=== PATIENT | female | born 2000 | race Native Hawaiian/Other Pacific Islander ===

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

== ENCOUNTER 2021-12-25 08:26 | Emergency (ER) | payer OTHER ==
[2021-12-25 08:51] VITALS: BP 125/75
--- NOTE | 2021-12-25 08:57 | Emergency Department Report ---
ED HPI - General Chief complaint: Abdominal Pain Stated complaint: 7WKS /LOWER ABD PAIN Time Seen by Provider: 12/25/21 08:46 Source: patient Mode of arrival: Ambulatory Limitations: No Limitations - History of Present Illness Initial comments: 21-year-old female presents to the ER today with complaints of low abdominal pain and . Patient states that she is about 6 weeks and some days . The first day of her last menstrual cycle was November 12, 2021. She states that she started with intermittent sharp low abdominal pain, mainly left lower quadrant, for the past 3 days. She states that she notices it more when she walks. She denies any abnormal vaginal bleeding or discharge. She denies UTI symptoms. She denies any associated lower back pain. She states that her first appointment is not until January. She is Ab0. Abdominal surgery significant for C-sections and appendectomy. Complaint: abdominal pain, other ( ) -: days(s) (3) - Related Data Home Medications Medication Instructions Recorded Confirmed Last Taken Multivitamin Tablet 1 tab PO DAILY 12/14/18 12/14/18 12/13/18 11:00 Previous Rx's Medication Instructions Recorded Last Taken Type Acetaminophen/Codeine [Tylenol 1 tab PO Q6H PRN #12 tab 07/17/18 12/07/18 16:00 Rx /Codeine # 3 tab] Ferrous Sulfate 325 mg PO BID #60 tablet. 12/15/18 Unknown Rx Ibuprofen [Motrin] 600 mg PO Q8H PRN #30 tablet 12/15/18 Unknown Rx oxyCODONE /ACETAMINOPHEN [Percocet 1 tab PO Q6HR PRN #30 tablet 12/15/18 Unknown Rx 5/325] Allergies Allergy/AdvReac Type Severity Reaction Status Date / Time No Known Allergies Allergy Verified 12/14/18 12:46 ED Review of Systems ROS: Stated complaint: 7WKS /LOWER ABD PAIN Other details as noted in HPI Comment: All other systems reviewed and negative Constitutional: denies: chills, diaphoresis, fever, malaise, weakness Eyes: denies: eye discharge, vision change ENT: denies: ear pain, throat pain, dental pain, hearing loss Respiratory: denies: cough, shortness of breath, wheezing Cardiovascular: denies: chest pain, palpitations Gastrointestinal: abdominal pain. denies: nausea, vomiting, diarrhea, constipation, hematemesis, melena, hematochezia Genitourinary: denies: urgency, dysuria, frequency, hematuria, discharge, abnormal menses, dyspareunia Musculoskeletal: denies: back pain, joint swelling, arthralgia, myalgia Skin: denies: rash, lesions, change in color, change in hair/nails Neurological: denies: headache, weakness, numbness, paresthesias, confusion, vertigo Psychiatric: denies: anxiety, depression, auditory hallucinations, visual hallu cinations, homicidal thoughts, suicidal thoughts Hematological/Lymphatic: denies: easy bleeding, easy bruising, swollen glands ED Past Medical Hx - Past Medical History Previous Medical History?: Yes Hx Hypertension: No Hx Congestive Heart Failure: No Hx Diabetes: No Hx Deep Vein Thrombosis: No Hx Renal Disease: No Hx Sickle Cell Disease: No Hx Seizures: No Hx Asthma: Yes (uses inhaler) Hx COPD: No - Surgical History Past Surgical History?: Yes Hx Appendectomy: Yes Additional Surgical History: - Social History Smoking Status: Former Smoker - Medications Home Medications: Home Medications Medication Instructions Recorded Confirmed Last Taken Type Acetaminophen/Codeine [Tylenol 1 tab PO Q6H PRN #12 tab 07/17/18 12/14/18 12/07/18 16:00 Rx /Codeine # 3 tab] Multivitamin Tablet 1 tab PO DAILY 12/14/18 12/14/18 12/13/18 11:00 History Ferrous Sulfate 325 mg PO BID #60 tablet. 12/15/18 Unknown Rx Ibuprofen [Motrin] 600 mg PO Q8H PRN #30 tablet 12/15/18 Unknown Rx oxyCODONE /ACETAMINOPHEN [Percocet 1 tab PO Q6HR PRN #30 tablet 12/15/18 Unknown Rx 5/325] ED Physical Exam - General Limitations: No Limitations General appearance: alert, in no apparent distress - Head Head exam: Present: atraumatic, normocephalic, normal inspection - Respiratory Respiratory exam: Present: normal lung sounds bilaterally. Absent: respiratory distress, wheezes, rales, rhonchi - Cardiovascular Cardiovascular Exam: Present: regular rate, normal rhythm, normal heart sounds - GI/Abdominal GI/Abdominal exam: Present: soft, tenderness (mild ttp llq). Absent: distended, guarding, rebound, rigid - Neurological Exam Neurological exam: Present: alert, oriented X3, CN II-XII intact, normal gait - Psychiatric Psychiatric exam: Present: normal affect, normal mood - Skin Skin exam: Present: intact ED Course Vital Signs 12/25/21 08:39 Temperature 98.5 F Pulse Rate 89 Respiratory 18 Rate Blood Pressure 125/75 O2 Sat by Pulse 100 Oximetry ED Medical Decision Making - Lab Data Result diagrams: 12/25/21 09:02 12/25/21 09:02 - Radiology Data Radiology results: report reviewed Patient: JANNETTE DOMINIQUE MR#: [id number] : 2000 Acct:[id number] Age/Sex: 21 / F ADM Date: 12/25/21 Loc: ED Attending Dr: Ordering Physician: TARA REILLY Date of Service: 12/25/21 Procedure(s): US OB transvaginal Accession Number(s): [id number] cc: TARA REILLY ULTRASOUND OBSTETRIC INDICATION / CLINICAL INFORMATION: about 6 weeks preg/low abd pain. Clinical Gestational Age (GA) in weeks, days: 6 weeks 2 days TECHNIQUE: Transvaginal. COMPARISON: None available. FINDINGS: GESTATIONAL SAC: Well-defined oval shape and intrauterine in location. YOLK SAC: No significant abnormality. EMBRYO/FETUS: No significant abnormality. - [place]-Rump Length = 0.36 cm = 6, 0 weeks, days - Heart Rate, beats per minute (if present) = 165 ADNEXA: No significant abnormality. FREE FLUID: Minimal free fluid in the pelvis. ADDITIONAL FINDINGS: Right ovary measures 1.9 x 2.6 x 2.1 cm. Left ovary measures 2.2 x 3.1 x 2.0 cm. IMPRESSION: 1. Single, living intrauterine with estimated sonographic age of 6 weeks 1 day. 2. Minimal free fluid is nonspecific. Signer Name: Chano Ludwig MD Signed: 12/25/2021 10:36 AM Workstation Name: [id number] Transcribed By: DB Dictated By: CHANO LUDWIG MD Electronically Authenticated By: CHANO LUDWIG MD Signed Date/Time: 12/25/21 1036 DD/ 1032 TD/TT: - Medical Decision Making 21-year-old female presents to the ER today with complaints of low abdominal pain and . Patient states that she is about 6 weeks and some days . The first day of her last menstrual cycle was November 12, 2021. She states that she started with intermittent sharp low abdominal pain, mainly left lower quadrant, for the past 3 days. She states that she notices it more when she walks. She denies any abnormal vaginal bleeding or discharge. She denies UTI symptoms. She denies any associated lower back pain. She states that her first appointment is not until January. She is Ab0. Abdominal pedersen rgery significant for C-sections and appendectomy. CBC and CMP unremarkable. Urinalysis negative [place] [id number]. OB ultrasound shows live IUP measuring at 6 weeks and 1 day. Patient seen in recliner comfortably. She denies any significant distress. Abdominal exam was soft and nontender. She has no vaginal bleeding or any other vaginal symptoms. She is not toxic or ill-appearing. She appears hydrated. She is neurologically intact and her gait is normal. Her vital signs are stable. Discussed all results with patient. Recommend Tylenol for pain and follow-up with her OB as scheduled but she understands to return if at any point her symptoms changes or worsens in any way. Critical care attestation.: If time is entered above; I have spent that time in minutes in the direct care of this critically ill patient, excluding procedure time. ED Disposition Clinical Impression: Abdominal pain during Disposition: 01 HOME / SELF CARE / HOMELESS Is pt being admited?: No Does the pt Need Aspirin: No Condition: Stable Instructions: Abdominal Pain During , [id number], Abdominal Pain (ED) Additional Instructions: Your OB ultrasound today shows a single live intrauterine about 6 weeks and 1 day. No evidence of ectopic . You can take Tylenol as needed to help with any pain or discomfort. Follow-up with your BUSINESS SYSTEMS CONSULTANT as scheduled. Return to the ER if your symptoms changes or worsens in any way. Referrals: PRIMARY CARE, [Primary Care Provider] - 3-5 Days Forms: Work/School Release Form(ED) Time of Disposition: 10:59
[2021-12-25 09:13] LABS: Bacteria,Urine 1+ /HPF (Negative); Bilirubin,Urine NEG (Negative); Blood,Urine NEG (Negative); Color,Urine Yellow (Yellow); Mucus,Urine 1+ /HPF; Protein,Urine <15 mg/dL mg/dL (Negative); Urobilinogen,Urine < 2.0 mg/dL (<2.0)
[2021-12-25 09:29] LABS: Basophils % (Auto) 0.6 % (0.0-1.8); Eosinophils # (Auto) 0.1 K/mm3 (0.0-0.4); Eosinophils % (Auto) 2.1 % (0.0-4.3); Hematocrit 36.7 % (30.3-42.9); Hemoglobin 11.7 gm/dl (10.1-14.3); Lymphocytes # (Auto) 1.7 K/mm3 (1.2-5.4); Lymphocytes % (Auto) 26.6 % (13.4-35.0); Mean Corpuscular HGB Conc 32 % (30-34); Mean Corpuscular Volume 79 fl (79-97); Monocytes # (Auto) 0.5 K/mm3 (0.0-0.8); Monocytes % (Auto) 7.1 % (0.0-7.3); Platelet Count 239 K/mm3 (140-440); Red Blood Count 4.63 M/mm3 (3.65-5.03)
[2021-12-25 09:52] LABS: Alanine Aminotransferase 10 units/L (7-56); Albumin 4.1 g/dL (3.9-5); Blood Urea Nitrogen 6 mg/dL (7-17); Calcium 8.8 mg/dL (8.4-10.2); Hemolysis Index 36
[2021-12-25 10:09] LABS: BUN/Creatinine Ratio 12
--- NOTE | 2021-12-25 10:41 | Ultrasound Report ---
ULTRASOUND OBSTETRIC INDICATION / CLINICAL INFORMATION: about 6 weeks preg/low abd pain. Clinical Gestational Age (GA) in weeks, days: 6 weeks 2 days TECHNIQUE: Transvaginal. COMPARISON: None available. FINDINGS: GESTATIONAL SAC: Well-defined oval shape and intrauterine in location. YOLK SAC: No significant abnormality. EMBRYO/FETUS: No significant abnormality. - [place]-Rump Length = 0.36 cm = 6, 0 weeks, days - Heart Rate, beats per minute (if present) = 165 ADNEXA: No significant abnormality. FREE FLUID: Minimal free fluid in the pelvis. ADDITIONAL FINDINGS: Right ovary measures 1.9 x 2.6 x 2.1 cm. Left ovary measures 2.2 x 3.1 x 2.0 cm. IMPRESSION: 1. Single, living intrauterine with estimated sonographic age of 6 weeks 1 day. 2. Minimal free fluid is nonspecific. Signer Name: Sarath Ludwig MD Signed: 12/25/2021 10:36 AM Workstation Name: [id number]
== END 2021-12-25 11:07 | disposition home or self-care (01) ==
LOC: ED 08:26
DX: O26.891 Other specified pregnancy related conditions, first trimester (principal); R10.32 Left lower quadrant pain; Z3A.08 8 weeks gestation of pregnancy; J45.909 Unspecified asthma, uncomplicated; Z98.890 Other specified postprocedural states
CPT/HCPCS: 36415; 76817; 80053; 81001; 84702; 85025; 87086; 99284

== ENCOUNTER 2022-06-27 12:30 | Outpatient (CLI) | payer OTHER ==
[2022-06-27 12:59] VITALS: BP 121/66
--- NOTE | 2022-06-27 13:51 | Ultrasound Report ---
. ULTRASOUND BIOPHYSICAL PROFILE INDICATION: BPP. Decreased movement COMPARISON: None available. FINDINGS: heart rate is 150 beats per minute. breathing movement = 2 Gross body movement = 2 tone = 2 Qualitative amniotic fluid volume = 2 IMPRESSION: biophysical profile = 06/20 Signer Name: Rolf Stovall Jr, MD Signed: 06/27/2022 1:47 PM Workstation Name: [id number]
== END 2022-06-27 13:58 | disposition home or self-care (01) ==
LOC: TRG 12:30 → APU 12:31 → TRG 13:58
PROVIDERS: ATTEND Obstetrics & Gynecology
DX: O36.8130 Decreased fetal movements, third trimester, not applicable or unspecified (principal); Z3A.32 32 weeks gestation of pregnancy
CPT/HCPCS: 76819

== ENCOUNTER 2022-07-11 10:40 | Outpatient (CLI) | payer OTHER ==
[2022-07-11] MEDS ORDERED: LACTATED RINGERS 500 ML IV ONE (11:18)
[2022-07-11 11:24] VITALS: BP 125/83
== END 2022-07-11 13:21 | disposition home or self-care (01) ==
LOC: TRG 10:40 → APU 10:42 → TRG 13:21
PROVIDERS: ATTEND Obstetrics & Gynecology
DX: O42.913 Preterm premature rupture of membranes, unspecified as to length of time between rupture and onset of labor, third trimester (principal); Z3A.34 34 weeks gestation of pregnancy
CPT/HCPCS: 36415; 59025; 84112

== ENCOUNTER 2022-08-07 08:14 | Inpatient (IN) | payer OTHER ==
[2022-08-07 11:28] LABS: Bilirubin,Urine NEG (Negative); Blood,Urine NEG (Negative); Color,Urine Yellow (Yellow); Protein,Urine <15 mg/dL mg/dL (Negative)
[2022-08-07 11:48] LABS: Bacteria,Urine 1+ /HPF (Negative); Mucus,Urine FEW /HPF; Sperm,Urine FEW /HPF (NP); Urobilinogen,Urine < 2 mg/dL (<2.0)
[2022-08-07] MEDS ORDERED: BICITRA ORAL LIQD 30ML PO ONE (11:49)
[2022-08-07] MEDS ORDERED: METOCLOPRAMIDE 10 MG/2 ML INJ IV ONE (11:49)
[2022-08-07] MEDS ORDERED: FAMOTIDINE 20 MG/2 ML INJ IV ONE (11:49)
--- NOTE | 2022-08-07 11:59 | History and Physical Report ---
History of Present Illness Date of examination: 08/07/22 Date of admission: 08/07/22 Chief complaint: I think I am leaking History of present illness: Pt is a 21 year old DARELL 08/18/22 at 38w3d who presents with leakage of fluid intermittently since about 2200 PM 08/06/22. She presented to triage this morning with irregular contractions. ROM plus at that time was negative, but pt continued to report leaking. Ultrasound revealed oligohydramnios. The patient has had care at [facility] since 11 wks complicated by previous section, growth restriction, asthma, eczema, UTI, and GERD. She is GBS negative. Past History Past Medical History: asthma, GERD, other (eczema ) Past Surgical History: section (2019) Family/Genetic History: heart disease Social history: no significant social history, - Obstetrical History Expected Date of Delivery: 08/18/22 Actual Gestation: 38 Week(s) 3 Day(s) : 2 Para: 1 Hx # Term Pregnancies: 1 Number of Pregnancies: 0 Spontaneous Abortions: 0 Induced : 0 Number of Living Children: 1 Medications and Allergies Allergies Allergy/AdvReac Type Severity Reaction Status Date / Time No Known Allergies Allergy Verified 12/14/18 12:46 Home Medications Medication Instructions Recorded Confirmed Last Taken Type Acetaminophen/Codeine [Tylenol 1 tab PO Q6H PRN #12 tab 07/17/18 06/27/22 12/07/18 16:00 Rx /Codeine # 3 tab] Multivitamin Tablet 1 tab PO DAILY 12/14/18 06/27/22 06/26/22 History Ibuprofen [Motrin] 600 mg PO Q8H PRN #30 tablet 12/15/18 06/27/22 Unknown Rx RX: Ferrous Sulfate 325 mg PO BID #60 tablet. 12/15/18 06/27/22 Unknown Rx oxyCODONE /ACETAMINOPHEN [Percocet 1 tab PO Q6HR PRN #30 tablet 12/15/18 06/27/22 Unknown Rx 5/325] Active Meds: Active Medications Citric Acid/Sodium Citrate (Bicitra Oral Liqd 30ml) 30 ml PO ONCE ONE Stop: 08/07/22 11:50 Famotidine (Famotidine 20 Mg/2 Ml Inj) 20 mg IV ONCE ONE Stop: 08/07/22 11:50 Lactated Ringer's (Lactated Ringers) 1,000 mls @ 2,250 mls/hr IV PREOP GRAHAM Stop: 08/08/22 12:27 Oxytocin/Sodium Chloride (Pitocin/Ns 30 Unit/500ml) 30 units in 500 mls @ 0 mls/hr IV TITR GRAHAM; Protocol Cefazolin Sodium (Ancef/Sterile Water 2 Gm/20 Ml) 2 gm in 20 mls @ 80 mls/hr IV PREOP NR; Protocol Metoclopramide HCl (Metoclopramide 10 Mg/2 Ml Inj) 10 mg IV ONCE ONE Stop: 08/07/22 11:50 Review of Systems All systems: negative - Vital Signs Vital signs: Vital Signs Pulse BP 117 H 122/84 08/07/22 08:40 08/07/22 08:40 Temp Pulse Resp BP Pulse Ox 98.2 F 94 H 16 122/84 97 08/07/22 08:41 08/07/22 11:51 08/07/22 08:41 08/07/22 08:41 08/07/22 11:51 - Physical Exam Breasts: Positive: deferred Abdomen: Positive: soft (gravid ) Uterus: Positive: enlarged (gravid ) Extremities: Positive: normal - Obstetrical FHR: auscultation normal Uterine Contraction Monitor Mode: External Uterine Contraction Pattern: Irregular Uterine Tone Measurement Phase: Resting Uterine Contraction Intensity: Mild Results All other labs normal. Assessment and Plan A: IUP at 38w3d Premature Rupture of Membranes Oligohydramnios Intrauterine Growth Restriction Previous x 1 Asthma Eczema GERD GBS Negative P: Proceed with repeat section and other indicated procedures
[2022-08-07] MEDS ORDERED: ceFAZolin/Water 2 GM/20 ML 2 GM/20 ML SYRINGE IV NR (12:00)
[2022-08-07] MEDS ORDERED: LACTATED RINGERS 1,000 ML IV SCH (12:00)
[2022-08-07] MEDS ORDERED: OXYTOCIN DRIP 30 UNITS/500 ML BAG IV SCH ×2 (12:00→16:51)
[2022-08-07] MEDS ORDERED: LIDOCAINE (2%) 20 MG/1 ML VIAL 20 ML MDV INFILTRATI ONE (12:02)
[2022-08-07] MEDS ORDERED: OXYTOCIN 10 UNIT/1 ML INJ IM PRN (12:02)
[2022-08-07] MEDS ORDERED: ACETAMINOPHEN 325 MG TAB PO PRN (12:02)
[2022-08-07] MEDS ORDERED: ePHEDrine SULFATE 50 MG/1 ML INJ IV PRN (12:02)
[2022-08-07] MEDS ORDERED: BUTORPHANOL 2 MG/1 ML INJ IV PRN (12:02)
[2022-08-07] MEDS ORDERED: fentaNYL 100 MCG/2 ML INJ IV PRN (12:02)
[2022-08-07] MEDS ORDERED: ONDANSETRON 4 MG/2 ML INJ IV PRN ×2 (12:02→16:51)
[2022-08-07] MEDS ORDERED: TERBUTALINE 1 MG/1 ML INJ SUB-Q PRN (12:02)
[2022-08-07] MEDS ORDERED: METHYLERGONOVINE MALEATE 0.2 MG/ML VIAL IM PRN (12:02)
[2022-08-07] MEDS ORDERED: MINERAL OIL 30 ML ORAL LIQD PO PRN (12:02)
[2022-08-07] MEDS ORDERED: miSOPROStol 200 MCG TAB PR PRN (12:02)
[2022-08-07] MEDS ORDERED: NALOXONE 0.4 MG/1 ML INJ IV PRN ×2 (12:02→16:51)
--- NOTE | 2022-08-07 12:17 | Ultrasound Report ---
Limited OB Ultrasound Biophysical profile HISTORY: Possible ROM, 38 wks. TECHNIQUE: Grayscale and color imaging performed. COMPARISON: Ultrasound from 06/27/2022 FINDINGS: Very limited imaging shows a single viable intrauterine gestation with cephalic presentatio n and heart rate of 142 bpm. Placenta position is not well delineated with the limited provided imagi ng. No appreciable amniotic fluid is identified. On biophysical profile, the fetus received a score of 2 out of 2 for breathing but a score of 0 out o f 2 for movement, posture/tone, and SATISH. IMPRESSION: 1. Very limited imaging shows a single viable intrauterine gestation with cephalic presentation. 2. Abnormal BPP as above with total score of 2 out of 8. Very little amniotic fluid volume remains. Signer Name: Dakotah Dockery MD Signed: 08/07/2022 12:13 PM Workstation Name: [id number]
--- NOTE | 2022-08-07 12:20 | Anesthesia Day of Surgery ---
Anesthesia Day of Surgery - Day of Surgery Patient Examined: Yes Patient H&P Reviewed: Yes Patient is NPO: Yes
--- NOTE | 2022-08-07 12:22 | Anesthesia Consultation ---
Anesthesia Consult and Med Hx Date of service: 08/07/22 - Airway Anesthetic Teeth Evaluation: Good ROM Head & Neck: Adequate Mental/Hyoid Distance: Adequate Mallampati Class: Class II Intubation Access Assessment: Probably Good - Pulmonary Exam CTA: Yes - Cardiac Exam Cardiac Exam: RRR - Pre-Operative Health Status ASA Pre-Surgery Classification: ASA2 Proposed Anesthetic Plan: Spinal - Pulmonary Hx Smoking: No Hx Asthma: Yes (inhaler prn last used 2 wks ago) COPD: No Hx Pneumonia: No - Cardiovascular System Hx Hypertension: No - Central Nervous System Hx Seizures: No Hx Psychiatric Problems: No - Gastrointestinal Hx Gastroesophageal Reflux Disease: Yes - Endocrine Hx Renal Disease: No Hx End Stage Renal Disease: No Hx Hypothyroidism: No Hx Hyperthyroidism: No - Hematic Hx Anemia: No Hx Sickle Cell Disease: No - Other Systems Hx Alcohol Use: Yes (not during ) Hx Substance Use: No - Additional Comments Anesthesia Medical History Comments: PSH: appendectomy and cesarian section 2019 - no anesthesia complications
[2022-08-07] MEDS ORDERED: MORPHINE PF 10MG/10 ML AMPULE ONE (12:39)
[2022-08-07] MEDS ORDERED: BUPIVACAINE/PF (0.5%) 5 MG/1 ML 30 ML VIAL INFILTRATI ONE (12:40)
[2022-08-07] MEDS ORDERED: ONDANSETRON 4 MG/2 ML INJ ONE ×2 (12:42)
[2022-08-07 13:01] LABS: Basophils % (Auto) 0.2 % (0.0-1.8); Eosinophils # (Auto) 0.1 K/mm3 (0.0-0.4); Eosinophils % (Auto) 0.9 % (0.0-4.3); Hematocrit 41.2 % (30.3-42.9); Lymphocytes # (Auto) 1.5 K/mm3 (1.2-5.4); Mean Corpuscular HGB Conc 34 % (30-34); Mean Corpuscular Volume 90 fl (79-97); Monocytes # (Auto) 0.5 K/mm3 (0.0-0.8); Monocytes % (Auto) 6.2 % (0.0-7.3); Platelet Count 194 K/mm3 (140-440); Red Blood Count 4.59 M/mm3 (3.65-5.03); Red Cell Distribution Width 17.4 % (13.2-15.2)
[2022-08-07] MEDS ORDERED: SODIUM CHLORIDE 0.9% 100 ML ONE ×2 (13:24→14:54)
[2022-08-07] MEDS ORDERED: PHENYLEPHRINE 10 MG/1 ML INJ SDV ONE (13:24)
[2022-08-07] MEDS ORDERED: ceFAZolin/STERILE WATER 2 GM/20 ML SYRINGE IV ONE (13:35)
[2022-08-07] MEDS ORDERED: LACTATED RINGERS 1,000 ML ONE (13:40)
[2022-08-07] MEDS ORDERED: SODIUM CHLORIDE 0.9% IRR 1,500 ML BOTTLE IR ONE (13:48)
[2022-08-07] MEDS ORDERED: WATER FOR IRRIG STERILE 1,500 ML BOTTLE IR ONE (13:48)
[2022-08-07] MEDS ORDERED: TRANEXAMIC ACID 1,000 MG/10 ML ONE (14:06)
[2022-08-07] MEDS ORDERED: KETAMINE/STERILE WATER 50 MG/ML SYRINGE ONE (14:26)
[2022-08-07] MEDS ORDERED: dexAMETHasone 20 MG/5 ML VIAL ONE (14:52)
--- NOTE | 2022-08-07 14:55 | Procedure Note ---
OB Delivery Note - Delivery Date of Delivery: 08/07/22 Surgeon: MARILYNN FERGUSON Estimated blood loss: other (221 mL QBL) - Section Preop diagnosis: repeat Postop diagnosis: same section procedure: section, repeat low transverse Disposition: PACU Complications: none Narrative: Please see operative report - A at 1 minute: 8 at 5 minutes: 9 Gender: Female (2630g (5lb 13oz) @ 1404 pm)
--- NOTE | 2022-08-07 14:59 | Operative Report ---
Operative Report Operative Report: Date of procedure: August 07, 2022 Preoperative diagnosis: 1) IUP at 38w3d 2) Premature rupture of membranes 3) Oligohydramnios 4) Previous x 1 Postoperative diagnosis: Same Procedure: Repeat low transverse section Surgeon: Anuradha Hernandez M.D. Anesthesia: Regional Findings: 1) Viable female , Apgars 8 and 9, weight 2630 g, (5lb 13 oz) in cephalic presentation. Nuchal cord x 1. Body cord x 1. 2) Normal-appearing uterus ovaries and tubes Estimated blood loss: 221 mL by QBL IV fluids: 1800 mL Urine output: 250 mL, clear at the end of the procedure Drains: Lainez to gravity Specimens: Placenta to pathology Complications:None. Counts correct x 3 Disposition: Stable to PACU Indication for procedure: Pt is a 21-year-old 2 para 1-0-0-1 at 38 weeks 3 days who presents with rupture of membranes, oligohydramnios, and previous section x1. The decision was made to proceed with section. Operation in detail: After the risks, benefits, alternatives and complications were explained to the patient she gave informed consent for the procedure. She was subsequently taken to the operating room where regional anesthesia was noted to be adequate. She was placed in the dorsal supine position with leftward tilt and prepped and draped in a normal sterile fashion. heart tones were noted prior to incision. A timeout was performed. A Pfannenstiel skin incision was made with the knife and carried down to the layer of the fascia with the Bovie. The fascia was incised in the midline and the fascial incision was extended bilaterally with the Bovie. The fascial incision was then stretched. The rectus muscles were then in the midline and partially transected for adequate visualization. The peritoneum was then entered bluntly. The peritoneal incision was extended with good visualization of the bladder. The peritoneal incision was then stretched. An Joshua retractor was placed. The bladder blade was then placed. The vesicouterine peritoneum was grasped with smooth pick ups and incised with Metzenbaum scissors. A bladder flap was then created digitally and the bladder blade was replaced. A transverse incision was made in the lower uterine segment with a knife and extended bilaterally with the bandage scissors. Amniotomy was performed with egress of clear fluid. head was noted to be floating. Kiwi vacuum was placed and head was delivered with one pull, then released, followed by delivery shoulders and body. bulb suctioned at delivery. Cord clamped and cut. handed to NICU staff in attendance. The placenta was then delivered manually. The uterus was then exteriorized and cleared of all clots and debris. The hysterotomy was then reapproximated with 0 Monocryl in a running locked fashion. A second layer of the same suture was used in imbricating fashion. The hysterotomy was inspected and hemostasis was noted. The gutters were irrigated and cleared of all clots and debris. The uterus was placed back into the peritoneal cavity. The hysterotomy was again inspected and noted to be hemostatic. Surgicel was placed over the hysterotomy. The Joshua retractor was removed. The peritoneum was reapproximated with 0 Monocryl in a running fashion incorporating the rectus muscles. Surgicel was placed over the rectus muscles. The fascia was reapproximated with 0 Vicryl in a running fashion. The subcutaneous tissue was reapproximated with 3-0 Vicryl in a running fashion. The skin was reapproximated with 3-0 Monocryl in a subcuticular fashion. The incision was then covered with steri strips and a pressure dressing. The procedure was then ended. The patient tolerated the procedure well and was taken to the PACU in stable condition. All instrument, lap, and needle counts were correct 3.
[2022-08-07] MEDS ORDERED: D5W/LACTATED RINGERS 1,000 ML IV SCH (16:51)
[2022-08-07] MEDS ORDERED: WITCH HAZEL/ GLYCERIN PAD TP PRN (16:51)
[2022-08-07] MEDS ORDERED: LANOLIN/ZINC/DIMETHICONE (LANSINOH) 7 GM TP PRN (16:51)
[2022-08-07] MEDS ORDERED: HYDROmorphone 0.5 MG/0.5 ML INJ IV PRN ×2 (16:51)
[2022-08-07] MEDS ORDERED: ceFAZolin/NS 1 GM/50 ML 1 GM/50 ML BAG IV SCH (16:51)
[2022-08-07] MEDS ORDERED: SIMETHICONE 80 MG CHEW TAB PO PRN (16:51)
[2022-08-07] MEDS: KETOROLAC 30 MG/1 ML INJ IV SCH ×2 (17:27→23:13)
[2022-08-07] MEDS: IBUPROFEN 800 MG TAB PO SCH (17:46)
[2022-08-07] MEDS: ceFAZolin/NS 1 GM/50 ML 1 GM/50 ML BAG IV SCH (23:12)
[2022-08-08] MEDS: IBUPROFEN 800 MG TAB PO SCH ×3 (01:33→22:56)
[2022-08-08 05:20] LABS: Hematocrit 36.8 % (30.3-42.9); Hemoglobin 12.1 gm/dl (10.1-14.3)
[2022-08-08] MEDS: KETOROLAC 30 MG/1 ML INJ IV SCH ×2 (05:26→10:34)
--- NOTE | 2022-08-08 05:37 | Post Anesthesia Evaluation ---
- Post Anesthesia Evaluation Patient Participated: Yes Airway Patent: Yes Stable Respiratory Function: Yes Nausea/Vomiting: No Temp > 96.8F: Yes Pain Manageable: Yes Adequeate Hydration: Yes Anesthesia Complications: No Block Receding Appropriately: Yes Patient on Ventilator: No
[2022-08-08] MEDS: ceFAZolin/NS 1 GM/50 ML 1 GM/50 ML BAG IV SCH (06:19)
--- NOTE | 2022-08-08 13:27 | Progress Note ---
Assessment and Plan - Patient Problems (1) delivery delivered Current Visit: No Status: Acute Plan to address problem: Patient doing well Routine postoperative care Subjective - Subjective Date of service: 08/08/22 Interval history: Patient is status post delivery. She is without any significant complaints today. She is tolerating her diet without complication Patient reports: appetite normal, voiding normally, pain well controlled Flora: doing well Objective - Vital Signs Latest vital signs: Vital Signs Temp Pulse Resp BP BP Pulse Ox Pulse Ox 08/08/22 11:54 97.8 F 79 18 106/58 100 08/08/22 08:40 98 08/08/22 07:36 98.0 F 67 18 97/58 99 08/08/22 05:26 12 08/08/22 04:50 97.9 F 76 18 120/76 97 08/08/22 00:30 98.2 F 70 18 115/79 98 08/07/22 23:13 12 08/07/22 20:35 98.0 F 73 18 122/80 98 08/07/22 20:00 98 08/07/22 16:30 97.4 F L 75 16 124/70 99 08/07/22 16:00 95 H 10 L 114/63 98 08/07/22 15:45 98 F 94 H 19 130/55 08/07/22 15:30 100 H 15 123/52 08/07/22 15:25 99 H 17 120/60 08/07/22 15:20 84 19 117/55 08/07/22 15:15 98 F 85 15 127/58 Intake and Output 08/07/22 08/08/22 08/08/22 22:59 06:59 14:59 Intake Total 1999 290 60 Output Total 550 1100 Balance 1450 -810 60 Intake: IV 2000 50 ANCEF/NS 1 GM/50 ML 1 gm 50 In 50 ml @ 100 mls/hr IV Q8H [facility] Rx#:[id number] Oral 240 60 Output: Urine 550 1100 Indwelling 150 Indwelling Catheter 1100 Other: Total, Intake Amount 120 60 Total, Output Amount 300 - Exam Incision: Present: dressed
[2022-08-08] MEDS ORDERED: TETANUS,DIPH,PERTUSS(ACELL) VACCINE 0.5 ML SYRINGE IM ONE (15:01)
[2022-08-08] MEDS ORDERED: MEASLES, MUMPS & RUBELLA 12,500 UNIT/0.5 ML VACCINE SUB-Q ONE (15:01)
[2022-08-08] MEDS: oxyCODONE /ACETAMINOPHEN 5-325MG TAB PO PRN (15:53)
[2022-08-09] MEDS: IBUPROFEN 800 MG TAB PO SCH ×2 (05:26→12:42)
[2022-08-09 08:20] VITALS: BP 107/61
[2022-08-09] MEDS: oxyCODONE /ACETAMINOPHEN 5-325MG TAB PO PRN (09:32)
--- NOTE | 2022-08-09 09:34 | Progress Note ---
Assessment and Plan A: POD#2 s/p R. C/S at term P: Continue with routine care with discharge anticipated this afternoon Administer analgesics (Ibuprofen and Percocet) as needed. Subjective - Subjective Date of service: 08/09/22 Principal diagnosis: POD#2 s/p R. C/S at term Interval history: POD#2 s/p R. C/S at term. Patient is feeling well with some mild discomfort unrelieved by Ibuprofen. She reports +flatus and no issues with ambulation nor voiding. She has not had a bowel movement. Patient reports: appetite normal, voiding normally, flatus, pain poorly controlled, ambulating normally, no bowel movement : doing well Objective - Vital Signs Latest vital signs: Vital Signs Temp Pulse Resp BP Pulse Ox Pulse Ox 08/09/22 07:31 97.9 F 69 18 107/61 99 08/09/22 05:26 98 08/09/22 03:30 98 08/09/22 01:20 98 08/09/22 00:28 97.6 F 66 18 116/61 100 08/08/22 23:45 98 08/08/22 21:25 98 08/08/22 19:55 98 08/08/22 15:43 97.4 F L 80 18 110/71 100 08/08/22 11:54 97.8 F 79 18 106/58 100 Intake and Output 08/08/22 08/09/22 08/09/22 23:59 07:59 15:59 Intake Total 240 120 120 Balance 240 120 120 Intake: Oral 120 120 120 Intake, Free Water 120 Other: Total, Intake Amount 120 120 120 # Voids Void 1 1
--- NOTE | 2022-08-09 09:40 | Discharge Summary ---
Providers - Providers Date of Admission: 08/07/22 12:02 Date of discharge: 08/09/22 Attending physician: MARILYNN FERGUSON 08/07/22 16:51 Consult to Forest Officer [CONS] Routine Reason For Exam: Primary care physician: MARILYNN FERGUSON Hospitalization Reason for admission: rupture of membranes Delivery: Procedure: section Incision: normal, dry, intact, warm Other procedures: none complications: none Discharge diagnosis: IUP at term delivered baby: female Hospital course: The patient was admitted for ROM and went on to have a repeat C/S for a viable female . Her course was uncomplicated. Condition at discharge: Good Disposition: 01 HOME / SELF CARE / HOMELESS Plan - Discharge Medications Prescriptions: Ibuprofen [Motrin] 800 mg PO Q8HR PRN #60 tablet PRN Reason: Pain , Severe (7-10) oxyCODONE /ACETAMINOPHEN [Percocet 5/325] 1 tab PO Q6HR PRN #30 tablet PRN Reason: Pain - Provider Discharge Summary Activity: routine, other (No sex or strenuous exercise for 8 weeks. No heavy lifting for 4 weeks.) Diet: routine Instructions: routine Additional instructions: [] Smoking cessation referral if applicable(refer to patient education folder for contact #) [] Refer to [facility]'s [facility] Booklet Call your doctor immediately for: * Fever > 100.5 * Heavy vaginal bleeding ( >1 pad per hour) * Severe persistent headache * Shortness of breath * Reddened, hot, painful area to leg or breast * Drainage or odor from incision. * Keep incision clean and dry at all times and follow doctor's instructions regarding bathing/showering - Follow up plan Follow up: MARILYNN FERGUSON MD [Primary Care Provider] - 14 Days
== END 2022-08-09 12:50 | disposition home or self-care (01) | DRG 765 ==
LOC: TRG 08:14 → APU 08:17 → TRG 12:26 → APU 13:35 → OB 16:28
PROVIDERS: ADMIT Obstetrics & Gynecology; ATTEND Obstetrics & Gynecology
PROC: 10D00Z1 Extraction of Products of Conception, Low, Open Approach (ICD-10-PCS; principal; 2022-08-07)
PROC: 3E0234Z Introduction of Serum, Toxoid and Vaccine into Muscle, Percutaneous Approach (ICD-10-PCS; 2022-08-08)
PROC: 3E0134Z Introduction of Serum, Toxoid and Vaccine into Subcutaneous Tissue, Percutaneous Approach (ICD-10-PCS; 2022-08-08)
DX: O34.211 Maternal care for low transverse scar from previous cesarean delivery (principal); O41.03X0 Oligohydramnios, third trimester, not applicable or unspecified; O36.5930 Maternal care for other known or suspected poor fetal growth, third trimester, not applicable or unspecified; Z20.822 Contact with and (suspected) exposure to COVID-19; Z3A.38 38 weeks gestation of pregnancy; Z37.0 Single live birth; Z23 Encounter for immunization; O99.52 Diseases of the respiratory system complicating childbirth; O99.62 Diseases of the digestive system complicating childbirth; K21.9 Gastro-esophageal reflux disease without esophagitis; J45.909 Unspecified asthma, uncomplicated; L30.9 Dermatitis, unspecified; O99.72 Diseases of the skin and subcutaneous tissue complicating childbirth; O69.81X0 Labor and delivery complicated by cord around neck, without compression, not applicable or unspecified; O42.92 Full-term premature rupture of membranes, unspecified as to length of time between rupture and onset of labor
CPT/HCPCS: 36415; 76815; 76819; 81001; 84112; 85014; 85018; 85025; 86850; 86900; 86901; 87086; 88307; G0378; J3490; J7060; J7121; J0690; J1100; J1885; J2274; J2370; J2405; J2590; J2765; J7120; U0003